=== PATIENT | female | born 1985 | race Two or more races ===

== ENCOUNTER 2022-11-11 15:05 | Emergency (ER) | payer MEDICAID ==
[~2022-11-11] VITALS: Ht 137.2 cm; Wt 72.7 kg
[~2022-11-11 15:05] MED LIST: PREN1TAB49
[2022-11-11 16:19] VITALS: BP 134/75
== END 2022-11-11 16:21 | disposition home or self-care (01) ==
LOC: ER 15:05
DX: S91.201A Unspecified open wound of right great toe with damage to nail, initial encounter (principal); X58.XXXA Exposure to other specified factors, initial encounter; Y93.89 Activity, other specified; Y92.89 Other specified places as the place of occurrence of the external cause; Y99.8 Other external cause status; E11.9 Type 2 diabetes mellitus without complications
CPT/HCPCS: 73660; 99283; Z7610